=== PATIENT | female | born 1955 ===

== ENCOUNTER 2020-09-28 09:08 | Emergency (ER) | payer MEDICARE ==
--- NOTE | 2020-09-28 09:12 | EDM.PDOC ---
ED HPI GENERAL MEDICAL PROBLEM - General Stated Complaint: CHEST PAIN Time Seen by Provider: 09/28/20 09:08 Source of Information: Reports: Patient History Limitations: Reports: No Limitations - History of Present Illness INITIAL COMMENTS - FREE TEXT/NARRATIVE: 65-year-old female with history of COPD, left lower extremity DVT, bipolar was woken up with chest pain at 4:30 in the morning. Chest pain is localized to the right chest, described as 10 out of 10, dull, pleuritic, reproducible and positional, nonradiating, no alleviating factors. Associated with shortness of breath, nausea, cough, sweats, fever, chills, fatigue. She denies abdominal pain, back pain or palpitation. She smokes a third of a pack per day. She moved here from [place] 1 month ago. Yesterday she was moving and lifting heavy boxes. She has not established care in [place] yet. ROS: A 10-point review of systems, other than pertinent positives and negatives as stated per HPI, is otherwise negative Past medical history: No additional pertinent history Past Surgical history: No additional pertinent history Social history: No additional pertinent history Family history: No additional pertinent history PHYSICAL EXAM General: AOx4, GCS = 15, moderate distress HEENT: dry mucous membrane Neck: supple, no meningismus, no Kernig or Brudzinski Cardiac: S1S2 RRR Chest wall: Reproducible tenderness to right lateral chest wall Respiratory: CTAB, no crackles or rales, no wheezing Abdomen: Soft, no RUQ ttp, nontender, no rebound or guarding, nondistended, no pulsatile mass. Back: nontender Musculoskeletal: NVI distally, no deformity Neuro: No focal deficits Front/Back Body Image: 1 - tender Quality: Reports: Dull Chest Pain Score (Numeric/FACES): 10 - Related Data Allergies Allergy/AdvReac Type Severity Reaction Status Date / Time Penicillins Allergy Hives Verified 09/28/20 09:25 Home Meds: Home Meds ALPRAZolam [Xanax] 1 mg PO QID PRN 09/28/20 [History] Albuterol Sulfate [Proair Hfa] 09/28/20 [History] Famotidine 10 mg PO 09/28/20 [History] Naproxen [Naprosyn] 500 mg PO Q12HR #30 tab 09/28/20 [Rx] Pregabalin 100 mg PO 09/28/20 [History] traZODone HCl [Trazodone HCl] 100 mg PO 09/28/20 [History] ED ROS GENERAL - Review of Systems Review Of Systems: See Below (see dictation) ED EXAM, GENERAL - Physical Exam Exam: See Below (see dictation) #1 Interpretation EKG Interpretation Comments: 93 bpm, NSR, normal QRS interval, no STEMI. EKG and rhythm strip interpreted by me at 0858 Course - Vital Signs Last Recorded V/S: Last Vital Signs Temp 97.6 F 09/28/20 09:08 Pulse 91 09/28/20 13:26 Resp 18 09/28/20 09:55 BP 104/53 L 09/28/20 13:26 Pulse Ox 94 L 09/28/20 13:26 - Orders/Labs/Meds Orders: Active Orders 24 hr Category Date Time Status Cardiac Monitoring [RC] . DIRECTED Care 09/28/20 09:14 Active EKG Documentation Completion [RC] STAT Care 09/28/20 09:14 Active Pulse Oximetry [RC] ASDIRECTED Care 09/28/20 09:14 Active Sodium Chloride 0.9% [Normal Saline] 1,000 ml Med 09/28/20 11:45 Active IV .BOLUS Sodium Chloride 0.9% [Normal Saline] 1,000 ml Med 09/28/20 11:45 Active IV BOLUS Sodium Chloride 0.9% [Saline Flush] Med 09/28/20 09:14 Active 10 ml FLUSH ASDIRECTED PRN Sodium Chloride 0.9% [Saline Flush] Med 09/28/20 09:14 Active 2.5 ml FLUSH ASDIRECTED PRN Saline Lock Insert [OM.PC] Stat Oth 09/28/20 09:14 Ordered Medication Orders Sodium Chloride (Normal Saline) 1,000 mls @ 999 mls/hr IV .BOLUS MERISSA Sodium Chloride (Normal Saline) 1,000 mls @ 999 mls/hr IV BOLUS MERISSA Last Admin: 09/28/20 11:45 Dose: 999 mls/hr Documented by: AUDRA Sodium Chloride (Saline Flush) 10 ml FLUSH ASDIRECTED PRN PRN Reason: Keep Vein Open Last Admin: 09/28/20 09:49 Dose: 10 ml Documented by: AUDRA Sodium Chloride (Saline Flush) 2.5 ml FLUSH ASDIRECTED PRN PRN Reason: Keep Vein Open Last Admin: 09/28/20 09:49 Dose: 2.5 ml Documented by: AUDRA Labs: Laboratory Tests 09/28/20 09/28/20 09/28/20 Range/Units 09:10 09:10 09:10 WBC 9.78 (4.0-11.0) K/uL RBC 4.23 L (4.30-5.90) M/uL Hgb 13.7 (12.0-16.0) g/dL Hct 41.4 (36.0-46.0) % MCV 97.9 (80.0-98.0) fL MCH 32.4 H (27.0-32.0) pg MCHC 33.1 (31.0-37.0) g/dL RDW Std Deviation 48.7 (28.0-62.0) fl RDW Coeff of Khushboo 14 (11.0-15.0) % Plt Count 361 (150-400) K/uL MPV 9.60 (7.40-12.00) fL Neut % (Auto) 65.6 (48.0-80.0) % Lymph % (Auto) 25.2 (16.0-40.0) % [place] % (Auto) 6.0 (0.0-15.0) % Eos % (Auto) 2.5 (0.0-7.0) % Baso % (Auto) 0.7 (0.0-1.5) % Neut # (Auto) 6.4 H (1.4-5.7) K/uL Lymph # (Auto) 2.5 H (0.6-2.4) K/uL [place] # (Auto) 0.6 (0.0-0.8) K/uL Eos # (Auto) 0.2 (0.0-0.7) K/uL Baso # (Auto) 0.1 (0.0-0.1) K/uL Nucleated RBC % 0.0 /100WBC Nucleated RBCs # 0 K/uL Sodium 141 (136-145) mmol/L Potassium 4.0 (3.5-5.1) mmol/L Chloride 102 (98-107) mmol/L Carbon Dioxide 25.6 (21.0-32.0) mmol/L BUN 17 (7.0-18.0) mg/dL Creatinine 0.8 (0.6-1.0) mg/dL Est Cr Clr Drug Dosing 63.93 mL/min Estimated GFR (MDRD) > 60.0 ml/min Glucose 112 H (74-106) mg/dL Calcium 9.5 (8.5-10.1) mg/dL Total Bilirubin 0.5 (0.2-1.0) mg/dL AST 39 H (15-37) IU/L ALT 25 (14-63) IU/L Alkaline Phosphatase 59 (46-116) U/L Troponin I < 0.050 (0.000-0.056) ng/mL B-Natriuretic Peptide 31 (<100) PG/ML Total Protein 8.2 (6.4-8.2) g/dL Albumin 4.4 (3.4-5.0) g/dL Globulin 3.8 (2.6-4.0) g/dL Albumin/Globulin Ratio 1.2 (0.9-1.6) SARS-CoV-2 RNA (ALISSA) (NEGATIVE) 09/28/20 09/28/20 Range/Units 09:39 11:45 WBC (4.0-11.0) K/uL RBC (4.30-5.90) M/uL Hgb (12.0-16.0) g/dL Hct (36.0-46.0) % MCV (80.0-98.0) fL MCH (27.0-32.0) pg MCHC (31.0-37.0) g/dL RDW Std Deviation (28.0-62.0) fl RDW Coeff of Khushboo (11.0-15.0) % Plt Count (150-400) K/uL MPV (7.40-12.00) fL Neut % (Auto) (48.0-80.0) % Lymph % (Auto) (16.0-40.0) % [place] % (Auto) (0.0-15.0) % Eos % (Auto) (0.0-7.0) % Baso % (Auto) (0.0-1.5) % Neut # (Auto) (1.4-5.7) K/uL Lymph # (Auto) (0.6-2.4) K/uL [place] # (Auto) (0.0-0.8) K/uL Eos # (Auto) (0.0-0.7) K/uL Baso # (Auto) (0.0-0.1) K/uL Nucleated RBC % /100WBC Nucleated RBCs # K/uL Sodium (136-145) mmol/L Potassium (3.5-5.1) mmol/L Chloride (98-107) mmol/L Carbon Dioxide (21.0-32.0) mmol/L BUN (7.0-18.0) mg/dL Creatinine (0.6-1.0) mg/dL Est Cr Clr Drug Dosing mL/min Estimated GFR (MDRD) ml/min Glucose (74-106) mg/dL Calcium (8.5-10.1) mg/dL Total Bilirubin (0.2-1.0) mg/dL AST (15-37) IU/L ALT (14-63) IU/L Alkaline Phosphatase (46-116) U/L Troponin I < 0.050 (0.000-0.056) ng/mL B-Natriuretic Peptide (<100) PG/ML Total Protein (6.4-8.2) g/dL Albumin (3.4-5.0) g/dL Globulin (2.6-4.0) g/dL Albumin/Globulin Ratio (0.9-1.6) SARS-CoV-2 RNA (ALISSA) NEGATIVE (NEGATIVE) Meds: Medications Generic Name Dose Route Start Last Admin Trade Name Freq PRN Reason Stop Dose Admin Sodium Chloride 1,000 mls @ 999 mls/hr 09/28/20 11:45 Normal Saline IV .BOLUS MERISSA Sodium Chloride 1,000 mls @ 999 mls/hr 09/28/20 11:45 09/28/20 11:45 Normal Saline IV 999 mls/hr BOLUS MERISSA Administration Sodium Chloride 10 ml 09/28/20 09:14 09/28/20 09:49 Saline Flush FLUSH 10 ml ASDIRECTED PRN Administration Keep Vein Open Sodium Chloride 2.5 ml 09/28/20 09:14 09/28/20 09:49 Saline Flush FLUSH 2.5 ml ASDIRECTED PRN Administration Keep Vein Open Discontinued Medications Generic Name Dose Route Start Last Admin Trade Name Freq PRN Reason Stop Dose Admin Sodium Chloride 1,000 mls @ 999 mls/hr 09/28/20 09:30 Normal Saline IV .BOLUS MERISSA Sodium Chloride 1,000 mls @ 1,000 mls/hr 09/28/20 09:51 09/28/20 09:52 Normal Saline IV 09/28/20 10:50 1,000 mls/hr .Bolus ONE Administration Iopamidol 80 ml 09/28/20 10:49 09/28/20 10:50 Isovue Multipack-370 (76%) IVPUSH 09/28/20 10:50 80 ml ONETIME STA Administration Ketorolac Tromethamine 30 mg 09/28/20 09:26 09/28/20 09:48 Toradol IVPUSH 09/28/20 09:27 30 mg ONETIME ONE Administration Morphine Sulfate 4 mg 09/28/20 11:33 09/28/20 11:40 Morphine IVPUSH 09/28/20 11:34 4 mg ONETIME ONE Administration - Re-Assessments/Exams Free Text/Narrative Re-Assessment/Exam: 09/28/20 11:35 Patient still complains of pain to her right chest wall despite IV Toradol, will dose IV morphine. Second troponin pending. 09/28/20 14:00 After IV pain meds in the ER, her pain improved and is currently stable for discharge. I performed a repeat exam and did not appreciate new abnormal findings. Patient exhibits normal vital signs and has a normal gait on road test. I advised the patient to return to the ER for reevaluation if symptoms worsened, including fever, worsening pain, or any other worrisome symptoms. I in structed the patient to follow up with their PCP within 2-3 days. MEDICAL DECISION MAKING: I reviewed the patients past medical records, lab and radiographic findings. I discussed the case with the patient. My differential diagnosis included but is not limited to: ACS, pneumonia, PE, pneumothorax, chest wall pain, pulmonary edema/CHF, aortic dissection, pericarditis, intra- abdominal process. Her clinical history is consistent with chest wall pain, pain is reproducible to the right lateral chest, she was lifting heavy boxes yesterday and this morning she started having reproducible chest pain. Given the EKG and clinical history, I do not suspect pericarditis. There is no evidence of pneumothorax or infiltrate on CXR. Aortic dissection was considered, however the presenting symptoms were uncharacteristic of aortic dissection. Chest X-ray shows no evidence of mediastinal widening and there are strong, equal and symmetric pulses. Given the current presentation, I do not suspect aortic dissection. The patients history, chest X-ray, and exam do not suggest pulmonary edema/congestive heart failure. Pulmonary embolism was considered but ruled out with CTA. Intra-abdominal pathology felt unlikely given benign/non tender abdominal exam. She had no tenderness to right upper quadrant. I do not suspect acute cholecystitis. Acute coronary syndrome was considered but there are negative serial biomarkers, and the patient has a low HEART score of 2. Based on this, I feel that there is low risk for short-term major adverse cardiac event. I have discussed this with the patient and reviewed options for inpatient and outpatient management. The patient verbalizes an excellent understanding of the above including presence of small risk of short-term major adverse cardiac event even in the setting of low HEART score, negative cardiac biomarker, and compendium of elements of this presentation. The patient wishes to pursue further workup on as an outpatient. Departure - Departure Time of Disposition: 14:05 Disposition: Home, Self-Care 01 Condition: Good Clinical Impression: Chest wall pain - Discharge Information *PRESCRIPTION DRUG MONITORING PROGRAM REVIEWED*: Not Applicable *COPY OF PRESCRIPTION DRUG MONITORING REPORT IN PATIENT NANCY: Not Applicable Prescriptions: Naproxen [Naprosyn] 500 mg PO Q12HR #30 tab Instructions: Chest Wall Pain, [id number] Referrals: Ciara Armstrong MD [Physician] - 3 Days Forms: ED Department Discharge Additional Instructions: The need for follow-up, as well as the timing and circumstances, are variable depending upon the specifics of your emergency department visit. If you don't have a primary care physician on staff, we will provide you with a referral. We always advise you to contact your personal physician following an emergency department visit to inform them of the circumstance of the visit and for follow-up with them and/or the need for any referrals to a consulting specialist. The emergency department will also refer you to a specialist when appropriate. This referral assures that you have the opportunity for follow-up care with a specialist. All of these measure are taken in an effort to provide you with optimal care, which includes your follow-up. Under all circumstances we always encourage you to contact your private physician who remains a resource for coordinating your care. When calling for follow-up care, please make the office aware that this follow-up is from your recent emergency room visit. If for any reason you are refused follow-up, please contact the [facility] Emergency Department at and asked to speak to the emergency department charge nurse. If you do not have a primary care doctor, please follow up with the clinics below within 3-5 days. [facility] [address] [place] [id number] [facility] [address] [place] [id number] Sepsis Event Note (ED) - Focused Exam Vital Signs: Vital Signs Temp Pulse Resp BP Pulse Ox 09/28/20 13:26 91 104/53 L 94 L 09/28/20 13:10 82 92/52 L 94 L 09/28/20 11:47 65 130/65 97 09/28/20 11:17 65 130/65 97 09/28/20 11:03 75 122/55 L 09/28/20 10:47 70 145/71 H 09/28/20 09:55 78 18 127/64 94 L 09/28/20 09:08 97.6 F 89 18 132/83 96 - My Orders Last 24 Hours: My Active Orders 09/28/20 09:14 Cardiac Monitoring [RC] . DIRECTED EKG Documentation Completion [RC] STAT Pulse Oximetry [RC] ASDIRECTED Sodium Chloride 0.9% [Saline Flush] 10 ml FLUSH ASDIRECTED PRN Sodium Chloride 0.9% [Saline Flush] 2.5 ml FLUSH ASDIRECTED PRN Saline Lock Insert [OM.PC] Stat 09/28/20 11:45 Sodium Chloride 0.9% [Normal Saline] 1,000 ml IV .BOLUS Sodium Chloride 0.9% [Normal Saline] 1,000 ml IV BOLUS - Assessment/Plan Last 24 Hours: My Active Orders 09/28/20 09:14 Cardiac Monitoring [RC] . DIRECTED EKG Documentation Completion [RC] STAT Pulse Oximetry [RC] ASDIRECTED Sodium Chloride 0.9% [Saline Flush] 10 ml FLUSH ASDIRECTED PRN Sodium Chloride 0.9% [Saline Flush] 2.5 ml FLUSH ASDIRECTED PRN Saline Lock Insert [OM.PC] Stat 09/28/20 11:45 Sodium Chloride 0.9% [Normal Saline] 1,000 ml IV .BOLUS Sodium Chloride 0.9% [Normal Saline] 1,000 ml IV BOLUS
[2020-09-28] MEDS ORDERED: Sodium Chloride 0.9% 2.5 ML Syringe FLUSH PRN (09:14)
[2020-09-28] MEDS ORDERED: Sodium Chloride 0.9% 10 ML Syringe FLUSH PRN (09:14)
[2020-09-28] MEDS ORDERED: Ketorolac 30 MG/ML SDV IVPUSH ONE (09:26)
[2020-09-28] MEDS ORDERED: Sodium Chloride 0.9% 1,000 ML IV SCH ×3 (09:30→11:45)
[2020-09-28] MEDS ORDERED: Sodium Chloride 0.9% 1,000 ML IV ONE (09:51)
[2020-09-28 09:54] LABS: BLOOD UREA NITROGEN,BUN 17 mg/dL (7.0-18.0); CARBON DIOXIDE,CO2 25.6 mmol/L (21.0-32.0); CHLORIDE,CL 102 mmol/L (98-107); GLUCOSE RANDOM 112 mg/dL (74-106); SODIUM,NA 141 mmol/L (136-145)
--- NOTE | 2020-09-28 10:02 | CR ---
INDICATION: Chest pain TECHNIQUE: Chest 1 view COMPARISON: None FINDINGS: Cardiovascular and mediastinum: Heart size and vasculature are normal in caliber and appearance. Lungs and pleural spaces: Lungs are clear. No sign of infiltrate or mass. No sign of pleural effusion. No pneumothorax. Bones and soft tissues: No significant findings. IMPRESSION: No acute or significant findings. Dictated by Sean Bagley MD @ Sep 28 2020 9:59AM Signed by Dr. Sean Bagley @ Sep 28 2020 9:59AM
[2020-09-28] MEDS ORDERED: Iopamidol 755 MG/ML 500 ML Multipack Bottle IVPUSH STA (10:49)
--- NOTE | 2020-09-28 10:58 | CT ---
INDICATION: Right-sided pleuritic chest pain. TECHNIQUE: CT chest PE was acquired with 80 cc Isovue 370 IV contrast. COMPARISON: None. FINDINGS: Heart and vasculature: Contrast opacification of the pulmonary arterial tree is adequate. No sign of pulmonary embolism. Heart size is normal. Thoracic aorta and pulmonary artery are normal in caliber. Lungs and pleural: No suspicious nodules or infiltrates. There is emphysema and scarring most prominent in the lung apices. No pleural effusions, pleural thickening, or pneumothorax. Lymph nodes/mediastinum: No mediastinal, hilar, or axillary adenopathy. Thyroid gland is normal. Chest wall: No masses. Upper abdomen: Normal. Bones: Unremarkable for age. IMPRESSION: No acute or specific findings to explain pleuritic chest pain. Specifically no pulmonary embolism or pneumonia. Dictated by Sean Bagley MD @ 09/28/2020 10:56:50 AM Please note that all CT scans at this facility use dose modulation, iterative reconstruction, and/or weight-based dosing when appropriate to reduce radiation dose to as low as reasonably achievable. Dictated by: Sean Bagley MD @ 09/28/2020 10:57:30 (Electronically Signed)
[2020-09-28] MEDS ORDERED: Morphine 4 MG/ML Syringe IVPUSH ONE (11:33)
== END 2020-09-28 14:14 | disposition home or self-care (01) ==
LOC: MW.ED 09:08
DX: R07.89 Other chest pain (principal); R07.81 Pleurodynia; R06.02 Shortness of breath; R11.0 Nausea; R05 Cough; R50.9 Fever, unspecified; R53.83 Other fatigue; J44.9 Chronic obstructive pulmonary disease, unspecified; F17.210 Nicotine dependence, cigarettes, uncomplicated; Z88.0 Allergy status to penicillin; Z20.822 Contact with and (suspected) exposure to COVID-19
CPT/HCPCS: 36415; 71045; 71275; 80053; 83880; 84484; 85025; 93005; 96374; 96375; 99285; J1885; J2270; J7030; Q9967; U0002; 93010; 99284